=== PATIENT | male | born 1990 | race Caucasian/White ===

== ENCOUNTER 2017-10-19 17:01 | Emergency (ER) | payer SELFPAY ==
[~2017-10-19] VITALS: Ht 170.2 cm; Wt 78.4 kg
[2017-10-19 17:13] VITALS: TEMP 36.9; Ht 170.2 cm; Wt 78.4 kg
[2017-10-19] MEDS ORDERED: DEXAMETHASONE SOD INJ 4 MG/ML VIAL IV STA (17:59)
[2017-10-19] MEDS ORDERED: ONDANSETRON INJ 2 MG/ML 2 ML VIAL IV STA (17:59)
[2017-10-19] MEDS ORDERED: HYDROmorphone INJ 1 MG/ML SYR IV STA (17:59)
[2017-10-19] MEDS ORDERED: SODIUM CHLORIDE 0.9% 1000ML 1,000 ML IV ONE (18:00)
--- NOTE | 2017-10-19 20:14 | DIAGNOSTIC IMAGING REPORT ---
MRI LUMBAR SPINE W/O CONTRAST CLINICAL HISTORY: Persistent severe low back pain with left leg radiculopathy. TECHNIQUE: Sagittal and axial T1, T2 and STIR images were obtained. COMPARISON STUDY: No previous studies for comparison. OBSERVATIONS: There is a 1 cm rounded lesion within the superior aspect of the L4 vertebral body demonstrating diminished T1 signal and increased T2 signal. This is of doubtful acute clinical significance given the patient's young age. L1-2: No disc protrusions or extrusions. No evidence of spinal canal or neural foraminal compromise. L2-3: No disc protrusions or extrusions. No evidence of spinal canal or neural foraminal compromise. L3-4: There is a small broad-based central disc protrusion. There is minimal deformity anterior thecal sac. There is no significant foraminal narrowing L4-5: There is a moderate central and left-sided disc protrusion. There is mild deformity anterior thecal sac. The disc material abuts the left L5 nerve root. L5-S1: There is a moderate central disc protrusion. There is no significant thecal sac deformity. There is no foraminal stenosis. The conus medullaris and cauda equina appear normal. IMPRESSION: 1. Small broad-based central disc protrusion at the L3-4 level 2. Moderate Central left-sided disc protrusion at the L4-5 level. The disc material abuts the left L5 nerve root 3. Moderate central disc protrusion at the L5-S1 level. Electronically signed by: Sanju Scherer M.D. 10/19/2017 8:13 PM Dictated Date/Time: 10/19/2017 8:10 PM
[2017-10-19] MEDS ORDERED: IBUP-1050 PO (20:28)
[2017-10-19] MEDS ORDERED: PERCOCET HOME PACK PO ONE (20:45)
[2017-10-19] MEDS ORDERED: PRED20TA2 PO (20:48)
[2017-10-19] MEDS ORDERED: OXYC-57 PO (20:48)
[2017-10-19 20:58] VITALS: BP 130/78; PULSE 78; O2SAT 98
--- NOTE | 2017-10-20 06:49 | EMERGENCY ROOM VISIT NOTE ---
ED Visit Note First contact with patient: 17:19 Chief Complaint: Lower back pain and left leg pain. History of Present Illness: Mr. Rajput is a 27-year-old white male who ambulates into the ED accompanied by his girlfriend complaining of lumbar back pain. Historically patient reports he has never had any significant back diseases or any trauma. Patient reports approximately 1.5 months ago he started experiencing left-sided lumbar back pain. He reports since that time his pain has been constant and gradually worsening. He reports he has been seen by a chiropractor multiple times since the onset of his pain and has not experiencing any improvement from his symptoms. Patient does not recall any specific event that started his back pain; although he does report at work he does a moderate amount of heavy lifting. Currently he places his discomfort in the L5-S1 area just left lateral to the spine. He describes his pain as a sharp sensation. He reports for most of the time he has been experiencing pain the discomfort has radiated into his left buttocks but over the last week his pain is now radiating down the entire leg to the level of the ankle, most prominently when he is weightbearing but sometimes while at rest. He rates his discomfort 8/10. His pain worsens with all movement at the waist, weightbearing, positional changes at the waist and palpation. He has not identified any alleviating factors related to the pain. He reports he has been taken ibuprofen and acetaminophen without relief. Associated with his pain he feels like there is a mild weakness in the leg prominent when he is weightbearing or ambulating, he has had difficulty starting his urine stream and he has noted a tingling sensation throughout the leg once again prominently when he is weightbearing. He denies any recent direct trauma, fevers, chills, sweats, skin eruptions, skin color changes, flank pain, abdominal pain, nausea, vomiting, diarrhea, constipation, rectal bleeding, black/tarry stools, urinary burning, increased urinary frequency, bowel and bladder incontinence, genital paresthesias. Review of Systems: As noted above in history of present illness. 8 body systems were reviewed and found to be negative as noted above. Past Medical History: Unspecified left eye surgery and unspecified wrist surgery. Current Medications: Patient denies. Allergies to Medications: Patient denies. Social History: Patient is currently employed; he feels safe in his home environment; he denies tobacco use; patient denies alcohol use. Physical Examination: Vital Signs: Date Time Temp Pulse Resp B/P (MAP) Pulse Ox O2 Delivery O2 Flow Rate FiO2 10/19/17 20:58 78 18 130/78 98 10/19/17 17:13 36.9 77 18 127/83 98 Room Air GENERAL: 27-year-old male in moderate distress due to pain, nontoxic-appearing, afebrile and hemodynamically stable. NEUROLOGICAL: Awake, alert and oriented to person, place and time. Answering questions appropriately and following commands. Patient's gait was stabilized by his girlfriend. Good hand eye coordination. SKIN: Warm, dry and pink. No soft tissue eruptions or trauma noted. HEENT: Atraumatic and normocephalic. BACK: No tenderness over the bony cervical and thoracic spine. Moderate tenderness to the left side of L4 through S1 without bony deformity, bony crepitus, swelling or ecchymosis. Positive straight leg raise test. Unable to perform range of motion at the waist due to patient's pain; he has to hold onto a wall to allow himself to stand because of his discomfort. No CVA tenderness. THORAX: Lungs sounds are clear to auscultation and equal bilaterally with symmetrical chest wall. ABDOMEN: Flat, soft and nontender. Positive bowel sounds in all quadrants. No guarding, rigidity or organomegaly. LOWER EXTREMITIES: No's gross bony deformities. No shortening or malrotation. No tenderness over the hips, thighs, knees, lower legs, ankles or feet. 2+ patellar and Achilles deep tendon reflexes; visual obscuration showed a slight decrease in his jerk reflex on the left when compared to the right on multiple attempts of the patellar reflex. 4/5 muscle strength in all movements at the waist, knee, ankle and toes; but once again the strength was slightly off when compared to the right. Throughout the legs the skin was warm and pink and capillary refill was brisk. He was intact to light sensations to all dermatomes of the legs and feet. ED Course: Patient is assessed as noted above. Patient's medication list was reviewed. Lumbar Spine MRI: Was reviewed by myself and read by the radiologist and shows: L3-4: There is a small broad-based central disc protrusion. There is minimal deformity anterior thecal sac. There is no significant foraminal narrowing L4-5: There is a moderate central and left-sided disc protrusion. There is mild deformity anterior thecal sac. The disc material abuts the left L5 nerve root. L5-S1: There is a moderate central disc protrusion. There is no significant thecal sac deformity. There is no foraminal stenosis. The conus medullaris and cauda equina appear normal. An IV lock was initiated and patient was hydrated with normal saline and received 1 mg of Dilaudid IV, 4 mg of Zofran IV and 10 mg of Decadron IV for his symptoms. Patient was reassessed multiple times during his stay in the emergency department. Patient's case was reviewed with Dr. Steward; we agreed on diagnostic approach, treatment, disposition and plan. Patient's case was reviewed with Dr. Travon Buchanan, orthopedic back specialist; he recommended continuing narcotic pain control and steroids. He encouraged the patient to contact his office for follow-up within the next 48 hours. Patient was educated about today's findings and instructed on his treatment plan ; he verbalized understanding and agreement with this plan. Clinical Impression: Acute lumbar back pain with disc protrusion and left-sided radicular symptoms. Decision-Making: Initially my differential diagnosis I considered herniated disc , nerve impingement, muscle spasms, and other causes. Disposition: Patient discharged home in stable condition accompanied by his girlfriend; prior to departure he was reassessed and subjectively reported he was feeling better and rated his discomfort 4/10. Plan: Patient was placed on a sliding pain medication scale of ibuprofen, acetaminophen and Percocet; his name was checked on state database and no red flags were noted and he was given appropriate narcotic precautions. Patient was placed on prednisone 60 mg once a day for the next 5 days. Patient was signed off work for 3 days. Patient was encouraged to follow-up with Dr. Buchanan for definitive care and treatment. Patient was encouraged return to the ED for worsening/uncontrolled pain, fevers , abdominal pain, worsening lower leg weakness/numbness/tingling, genital paresthesias, worsening bowel and bladder dysfunction or any new/concerning symptoms.
== END 2017-10-19 20:59 | disposition home or self-care (01) ==
LOC: C.EDB 17:02 → C.EDD 20:59
DX: M51.17 Intervertebral disc disorders with radiculopathy, lumbosacral region (principal)

== ENCOUNTER 2024-05-12 19:50 | Inpatient (IN) ==
[2024-05-12 20:32] LABS: Basophils # (auto) 0.03 K/uL (0.00-0.20); Basophils % (auto) 0.2 %; Hematocrit (blood only) 42.3 % (42.0-52.0); Hemoglobin 14.3 g/dl (14.0-18.0); Immature Granulocytes # (auto) 0.07 K/uL (0.01-0.20); Immature Granulocytes % (auto) 0.4 %; Lymphocytes # (auto) 0.86 K/uL (1.20-3.40); Mean Corpuscular Hemoglobin 27.9 pg (25.0-34.0); Mean Corpuscular Hgb Conc 33.8 g/dL (32.0-36.0); Mean Corpuscular Volume 82.6 fL (80.0-100.0); Mean Platelet Volume 10.2 fL (9.4-12.4); Monocytes # (auto) 1.08 K/uL (0.11-0.59); Monocytes % (auto) 6.3 %; Neutrophils # (auto) 15.06 K/uL (1.40-6.50); Neutrophils % (auto) 88.1 %; Platelet Count 157 K/uL (130-400); RDW Coefficient of Variation 12.5 % (11.5-14.5); Red Blood Count 5.12 M/uL (4.70-6.10)
[2024-05-12 20:46] LABS: Albumin Globulin Ratio 1.6 (0.9-2); Albumin Level 4.6 gm/dl (3.4-5.0); BUN Creatinine Ratio 16.5 (10-20); Bilirubin,Total 0.9 mg/dl (0.2-1.0); Calcium 9.6 mg/dl (8.6-10.3); Creatinine Clr Calc Pharmacy 96.8 ml/min; Globulin 2.8 gm/dl (2.5-4.0); Potassium 4.1 mmol/L (3.5-5.1); Total Protein 7.4 gm/dl (6.0-8.3)
--- NOTE | 2024-05-12 21:43 | Emergency Department Note ---
Impression & Plan Abscess of skin and subcutaneous tissue ED Provider Note CHIEF COMPLAINT: Possible infection HISTORY OF PRESENTING ILLNESS: This 34-year-old male patient presents to the emergency department with his girlfriend for evaluation of a possible postsurgical infection. The patient states that he had a lipoma removed from the right lower abdomen just above his hip on 04/29/[address] Drake. He feels that the area is getting more swollen and painful. He was given Bactrim today as an outpatient through telehealth, but states that the area where the stitches were then started draining tonight. He states that he has had numbness from the surgical site down to his knee since the surgery. He is also now having pain in his right hip. He is taking Percocet without improvement of the pain. He has had a fever of 101.4 F max that started today. The patient is having trouble walking now because of the pain. Denies chest pain, SOB, abdominal pain, nausea, or vomiting. He feels like he is having some urinary hesitancy today. Denies any problems with his BMs though. He is not a diabetic. He had soup and crackers at 6 pm. He had sips of water in the waiting room prior to being told to be NPO. Upon review of the [facility] surgical note, the patient had a 7 cm subcutaneous soft tissue subfascial mass of the right hip that was removed. REVIEW OF SYSTEMS: See HPI for pertinent positives and pertinent negatives. ALLERGIES: NKDA MEDICATIONS: Medical Marijuana PAST MEDICAL HISTORY: Denies past medical history. History of lumbar spine surgery. History of left wrist surgery. History of left eye surgery. History of lipoma removed from the right hip 04/29/24. PHYSICAL EXAM: VITALS: Vitals are noted on the nurse's note and reviewed by myself. GENERAL: Non toxic, no acute distress, non-diaphoretic. SKIN: The patient has a surgical incision to the right lower quadrant of the abdomen with sutures in place. There is surrounding erythema and edema, but no obvious fluctuance. There is mild induration below the surgical site. There is some serosanguineous discharge, but no obvious purulent discharge. There is mild dehiscence of the wound medially in the area where it is draining. No lymphatic streaking. Capillary refill <2 sec. EYES: PERRLA. EOMI. Conjunctivae without injection, sclerae without icterus. NOSE: Patent without discharge. MOUTH: Mucous membranes moist. Uvula midline. Airway patent. NECK: Supple without nuchal rigidity. HEART: Regular rate and rhythm without murmurs gallops or rubs. LUNGS: Clear to auscultation bilaterally without wheezes, rales or rhonchi. No retractions or accessory muscle use. ABDOMEN: Positive bowel sounds x 4. The patient is significantly tender to palpation in the area of the surgical incision. No other obvious masses or organomegaly. Arriaga sign negative. No CVA tenderness. The patient does have some guarding and rebound tenderness due to the right lower quadrant infection, but no rigidity. NEURO: Patient was alert and oriented. No focal neurological deficits. DIFFERENTIAL DIAGNOSIS: Differential diagnosis includes cellulitis, abscess, intra-abdominal infection, septic arthritis of the right hip, spinal infection, UTI, pyelonephritis, sepsis, or others. ED COURSE AND MEDICAL DECISION MAKING: HISTORY FROM INDEPENDENT HISTORIAN: Additional history obtained from patient's girlfriend. MEDICATIONS GIVEN: 1 L normal saline solution bolus. Toradol 10 mg IV. Morphine 4 mg IV. Zosyn 4.5 g IV. MONITOR: Continuous hall monitor: Order was placed for continuous hall monitor. Patient was placed on the hall monitor and continuous pulse ox. Patient was noted to be in normal sinus rhythm at an initial rate of 95 bpm per my interpretation. INTERPRETATION OF LABS: I interpreted the labs with full lab results as below in the lab section of this note. Pertinent lab results discussed in the MDM section below. INTERPRETATION OF IMAGING: Imaging studies were interpreted by myself and read by radiology as per the imaging section of this note. CT scan of the abdomen pelvis with IV contrast showed a subcutaneous fluid collection along the right pelvic wall which measures 9.8 x 2.5 x 9.7 cm. Correlate for subcutaneous abscess. Moderate surrounding subcutaneous edema concerning for extent of infection. EXTERNAL RECORDS REVIEWED: I reviewed the patient's outpatient surgical note as summarized above. CONSULTATIONS: Dr. Cantu of general surgery. On-call hospitalist. MDM SUMMARY: The patient was seen during a time of extreme volume and extreme acuity. Nursing triage protocols were initiated with IV lock, labs, and/or imaging studies conducted by protocol in the triage area. The patient was examined by myself once they were taken back to an exam room. The patient had a lipoma removed from the right lower quadrant of the abdomen just above his right hip on 04/29/[address] Drake. However, the area is now red, swollen, and significantly more painful. He also started with a fever of 101.4 F today. He sent pictures to surgery via telehealth today and they started him on Bactrim. However, the area started draining tonight. The patient's incision site does appear infected on exam. A culture swab was obtained from the discharge from the wound and is still pending. The patient was given 1 L normal saline solution bolus, IV Toradol, and IV morphine with improvement of his symptoms. Blood culture was drawn by nursing staff, but this was done after antibiotics were given. The patient was given Zosyn 4.5 g IV. The patient's lactate level is normal and his vital signs improved. Due to the severe shortage of IV fluids, the patient was not given additional IV fluids in the ER. White blood cell count is elevated at 17.10. Hemoglobin normal at 14.3. Platelet count normal at 157. Sodium 133 and glucose 122, but CMP without acute abnormalities. Magnesium low at 1.6. Lactate normal at 1.2. Urinalysis without evidence for UTI. CT scan of the abdomen pelvis with IV contrast showed a subcutaneous fluid collection along the right pelvic wall which measures 9.8 x 2.5 x 9.7 cm. Correlate for subcutaneous abscess. Moderate surrounding subcutaneous edema concerning for extent of infection. I spoke with Dr. Cantu of general surgery and sent a picture of the incision site via [employer] for review. Dr. Cantu recommended the patient be admitted for IV antibiotics by medicine and Dr. Drake could evaluate the patient in the morning to determine if drainage could be performed at bedside or if the patient would need to be taken to the OR. I spoke with the on-call hospitalist who agreed to admit the patient for further management. Please refer to their dictation for further details. The patient's care was transferred in stable condition. DIAGNOSIS: Right pelvic subcutaneous abscess Past Med/Surg History Problem List (Updated 05/13/24 @ 07:37 by Ann Abbasi PA-C) Abscess of skin and subcutaneous tissue (Acute) Sepsis Extensor tendon laceration of wrist with open wound (Acute) Extensor tendon laceration of wrist with open wound (Acute) Lumbar disc herniation Social History Smoking Status: Current every day smoker Tobacco Type: Cigarettes Do You Dip or Chew Tobacco: No; Tobacco Cessation Education Requested by Patient: No Hx Alcohol Use: No Hx Substance Use: Yes Last Used Substance: Hours (ago) Preferred Language: Citizen Of [place] Communication Ability: Effective Manager Action Required: No Beliefs That Will Affect Care: None Current Living Situation: Significant Other Other Information That Helps Us Care for You: No Feels Safe at Home: Yes Safety Concerns: Feels Safe At This Time Assistive Devices: None Allergies Allergies Allergy/AdvReac Type Severity Reaction Status Date / Time No Known Drug Allergies Allergy Unknown . Verified 05/12/24 22:55 Home Meds Home Medications Medication Instructions Recorded Confirmed sulfamethoxazole 800 1 tab PO BID 05/12/24 05/12/24 mg-trimethoprim 160 mg tablet Results & Data (ED) Vital Signs Vital Signs - 24 hr 05/12/24 19:53 05/12/24 23:00 05/12/24 23:59 Temperature 36.6 C Temperature Source Temporal Artery Scan Pulse Rate 110 H Pulse Rate [Apical] 93 H 93 H Respiratory Rate 18 20 20 Respiratory Effort / Characteristics Non-Labored Spontaneous Non-Labored Non-Labored Respiratory Depth Normal Blood Pressure 138/76 Blood Pressure [Right Arm] 113/56 L 120/65 Blood Pressure Mean 96 Blood Pressure Mean [Right Arm] 75 83 Pulse Oximetry 97 96 95 Oxygen Delivery Method Room Air Room Air Sepsis Recent Fever Within 48 Hours No Sepsis New/Unexplained Change in Mental Status No Sepsis Action Taken by Nursing No Action Required 05/13/24 01:00 Temperature Temperature Source Pulse Rate Pulse Rate [Apical] 88 Respiratory Rate 16 Respiratory Effort / Characteristics Non-Labored Respiratory Depth Blood Pressure Blood Pressure [Right Arm] 120/65 Blood Pressure Mean Blood Pressure Mean [Right Arm] 83 Pulse Oximetry 93 Oxygen Delivery Method Room Air Sepsis Recent Fever Within 48 Hours Sepsis New/Unexplained Change in Mental Status Sepsis Action Taken by Nursing Laboratory Data 05/13/24 04:25 05/13/24 04:25 Lab Results 05/12/24 05/12/24 05/12/24 Range/Units 20:10 22:10 23:13 WBC 17.10 H (4.8-10.8) K/ul RBC 5.12 (4.70-6.10) M/uL Hgb 14.3 (14.0-18.0) g/dl Hct 42.3 (42.0-52.0) % MCV 82.6 (80.0-100.0) fL MCH 27.9 (25.0-34.0) pg MCHC 33.8 (32.0-36.0) g/dL RDW Std Deviation 38.0 (36.4-46.3) fL RDW Coeff of Higinio 12.5 (11.5-14.5) % Plt Count 157 (130-400) K/uL MPV 10.2 (9.4-12.4) fL Immature Gran % (Auto) 0.4 % Neut % (Auto) 88.1 % Lymph % (Auto) 5.0 % [place] % (Auto) 6.3 % Eos % (Auto) 0.0 % Baso % (Auto) 0.2 % Neut # (Auto) 15.06 H (1.40-6.50) K/uL Lymph # (Auto) 0.86 L (1.20-3.40) K/uL [place] # (Auto) 1.08 H (0.11-0.59) K/uL Eos # (Auto) 0.00 (0.00-0.50) K/uL Baso # (Auto) 0.03 (0.00-0.20) K/uL Immature Gran # (Auto) 0.07 (0.01-0.20) K/uL Sodium 133 L (136-145) mmol/L Potassium 4.1 (3.5-5.1) mmol/L Chloride 98 (98-107) mmol/L Carbon Dioxide 27 (21-32) mmol/L Anion Gap 8 (3-11) BUN 16 (6-23) mg/dl Creatinine 0.97 (0.6-1.4) mg/dl Est Cr Clr Drug Dosing 96.8 ml/min eGFR 105.06 BUN/Creatinine Ratio 16.5 (10-20) Glucose 122 H (70-99(Fasting)) mg/dl Estimat Average Glucose 105 mg/dl Hemoglobin A1c 5.3 (4.5-5.6) % Lactate 1.2 (0.4-2.0) mmol/L Calcium 9.6 (8.6-10.3) mg/dl Magnesium 1.6 L (1.7-2.4) mg/dl Total Bilirubin 0.9 (0.2-1.0) mg/dl AST 18 (13-39) U/L ALT 20 (7-52) U/L Alkaline Phosphatase 64 (34-104) U/L Total Protein 7.4 (6.0-8.3) gm/dl Albumin 4.6 (3.4-5.0) gm/dl Globulin 2.8 (2.5-4.0) gm/dl Albumin/Globulin Ratio 1.6 (0.9-2) Urine Color Yellow Urine Appearance Clear (Clear) Urine pH 6.5 (4.5-7.5) Ur Specific [place] > 1.045 H (1.000-1.030) Urine Protein Negative (Negative) Urine Glucose (UA) Negative (Negative) Urine Ketones Negative (Negative) Urine Blood Negative (Negative) Urine Nitrite Negative (Negative) Urine Bilirubin Negative (Negative) Urine Urobilinogen Negative (Negative) Ur Leukocyte Esterase Negative (Negative) Administered Medications Acetaminophen (Acetaminophen 325 Mg Tab) 650 mg PO QID PRN PRN Reason: pain/fever Stop: 06/12/24 02:07 Last Admin: 05/13/24 06:05 Dose: 650 mg Documented By: GILDARDO Piperacillin Sod/Tazobactam Sod (Zosyn) 4.5 gm in 100 mls @ 25 mls/hr IV Q8H HELENA; Protocol Stop: 05/20/24 03:59 Last Admin: 05/13/24 04:08 Dose: 25 mls/hr Documented By: YOLANDA Sodium Chloride (Nss) 1,000 mls @ 75 mls/hr IV [id number] STA Stop: 05/13/24 15:31 Last Admin: 05/13/24 02:46 Dose: 75 mls/hr Documented By: YOLANDA Discontinued Medications Piperacillin Sod/Tazobactam Sod (Zosyn) 4.5 gm in 100 mls @ 200 mls/hr IV NOW ONE; Protocol Stop: 05/12/24 22:33 Last Infusion: 05/12/24 22:45 Dose: Infused Documented By: Admin: 05/12/24 22:16 Dose: 200 mls/hr Documented By: CEF Sodium Chloride (Nss) 1,000 mls @ 999 mls/hr IV .Q1H1M ONE Stop: 05/12/24 23:04 Last Infusion: 05/12/24 23:47 Dose: Infused Documented By: Admin: 05/12/24 22:13 Dose: 999 mls/hr Documented By: CEF Doxycycline Hyclate 100 mg/ (Dextrose) 100 mls @ 50 mls/hr IV NOW STA Stop: 05/13/24 03:34 Last Infusion: 05/13/24 03:56 Dose: Infused Documented By: Admin: 05/13/24 01:50 Dose: 50 mls/hr Documented By: YOLANDA Magnesium Sulfate/Dextrose (Magnesium Sulfate / D5w) 1 gm in 100 mls @ 50 mls/hr IV ONE STA Stop: 05/13/24 05:52 Last Infusion: 05/13/24 06:20 Dose: Infused Documented By: Admin: 05/13/24 03:57 Dose: 50 mls/hr Documented By: YOLANDA Ioversol (Optiray 320 100ml) 90 ml IV ONCE ONE Stop: 05/12/24 22:26 Last Admin: 05/12/24 22:26 Dose: 90 ml Documented By: AMMON Ketorolac Tromethamine (Ketorolac Tromethamine 15 Mg/Ml Vial) 10 mg IV NOW ONE Stop: 05/12/24 22:05 Last Admin: 05/12/24 22:10 Dose: 10 mg Documented By: CEF Morphine Sulfate (Morphine Sulfate 4 Mg/Ml 1 Ml Carp\Vial) 4 mg IV NOW STA Stop: 05/12/24 23:38 Last Admin: 05/12/24 23:52 Dose: 4 mg Documented By: YOLANDA Imaging Data Radiologist's Impression: Abdomen/Pelvis CT 05/12/24 22:04 Exam(s): CT ABDOMEN + PELVIS With Contrast IV Amt: 90 ml opti 320 EXAM: CT Abdomen and Pelvis With Intravenous Contrast CLINICAL HISTORY: Reason for exam: RLQ incision - eval extent of infection / abscess. TECHNIQUE: Axial computed tomography images of the abdomen and pelvis with intravenous contrast. CTDI is 13.65 mGy and DLP is 638.69 mGy-cm. Automated exposure control was utilized for the study. A dose lowering technique was utilized adhering to the principles of ALARA. CONTRAST: Patient received 90 ml opti 320 of IV contrast COMPARISON: No relevant prior studies available. FINDINGS: Lung bases: Unremarkable. No mass. No consolidation. ABDOMEN: Liver: Unremarkable. No mass. Gallbladder and bile ducts: Unremarkable. No calcified stones. No ductal dilation. Pancreas: Unremarkable. No mass. No ductal dilation. Spleen: Unremarkable. No splenomegaly. Adrenals: Unremarkable. No mass. Kidneys and ureters: Unremarkable. No solid mass. No hydronephrosis. Stomach and bowel: Unremarkable. No obstruction. No mucosal thickening. PELVIS: Appendix: No findings to suggest acute appendicitis. Bladder: Unremarkable. No mass. Reproductive: Unremarkable as visualized. ABDOMEN and PELVIS: Intraperitoneal space: Unremarkable. No free air. No significant fluid collection. Bones/joints: No acute fracture. No dislocation. Soft tissues: A subcutaneous fluid collection along the RIGHT pelvic wall, measures 9.8 x 2.5 x 9.7 cm. Correlate for subcutaneous abscess. Moderate surrounding subcutaneous edema, concerning for extent of infection. Vasculature: Unremarkable. No abdominal aortic aneurysm. Lymph nodes: Unremarkable. No enlarged lymph nodes. IMPRESSION: A subcutaneous fluid collection along the RIGHT pelvic wall, measures 9. 8 x 2.5 x 9.7 cm. Correlate for subcutaneous abscess. Moderate surrounding subcutaneous edema, concerning for extent of infection. Electronically signed by: Simón Mills MD 05/13/24 00:20 AM Discharge Plan Visit Data Chief Complaint: Leg Injury/Pain Stated Complaint: SURGERY LAST WEEK, INFECTION ED Provider: Osmany Ortiz ED Midlevel Provider: Ann Abbasi Discharge Problem: Abscess of skin and subcutaneous tissue Patient Disposition: Admitted As Inpatient Condition: Good Discharge Instructions Interventions: ED Discharge Assessment Last Done: 05/13/24 04:35 Discharge Problem: Abscess of skin and subcutaneous tissue Qualifiers: Site of cutaneous abscess: other site Qualified Code(s): L02.818 - Cutaneous abscess of other sites
[2024-05-12] MEDS: KETOROLAC TROMETHAMINE 15 MG/ML VIAL IV ONE (22:10)
[2024-05-12] MEDS: SODIUM CHLORIDE 0.9% 1,000 ML IV ONE (22:13)
[2024-05-12] MEDS: PIPERACILLIN/TAZOBACTAM 4.5 GM/100 ML BAG IV ONE (22:16)
[2024-05-12] MEDS: OPTIRAY 320 100ml IV ONE (22:26)
[2024-05-12 23:25] LABS: Appearance Urine Clear (Clear); Bilirubin Urine Negative (Negative); Blood Urine Negative (Negative); Color Urine Yellow; Glucose Urine UA Negative (Negative); Ketones Urine Negative (Negative); Leukocyte Esterase Urine Negative (Negative); Nitrite Urine Negative (Negative); Protein Urine Negative (Negative); Specific Gravity Urine > 1.045 (1.000-1.030); Urobilinogen Urine Negative (Negative); pH Urine 6.5 (4.5-7.5)
[2024-05-12] MEDS: MoRPHine SULFATE 4 MG/ML 1 ML CARP\\VIAL IV STA (23:52)
--- NOTE | 2024-05-13 00:21 | CT Scan Report ---
Exam(s): CT ABDOMEN + PELVIS With Contrast IV Amt: 90 ml opti 320 EXAM: CT Abdomen and Pelvis With Intravenous Contrast CLINICAL HISTORY: Reason for exam: RLQ incision - eval extent of infection / abscess. TECHNIQUE: Axial computed tomography images of the abdomen and pelvis with intravenous contrast. CTDI is 13.65 mGy and DLP is 638.69 mGy-cm. Automated exposure control was utilized for the study. A dose lowering technique was utilized adhering to the principles of ALARA. CONTRAST: Patient received 90 ml opti 320 of IV contrast COMPARISON: No relevant prior studies available. FINDINGS: Lung bases: Unremarkable. No mass. No consolidation. ABDOMEN: Liver: Unremarkable. No mass. Gallbladder and bile ducts: Unremarkable. No calcified stones. No ductal dilation. Pancreas: Unremarkable. No mass. No ductal dilation. Spleen: Unremarkable. No splenomegaly. Adrenals: Unremarkable. No mass. Kidneys and ureters: Unremarkable. No solid mass. No hydronephrosis. Stomach and bowel: Unremarkable. No obstruction. No mucosal thickening. PELVIS: Appendix: No findings to suggest acute appendicitis. Bladder: Unremarkable. No mass. Reproductive: Unremarkable as visualized. ABDOMEN and PELVIS: Intraperitoneal space: Unremarkable. No free air. No significant fluid collection. Bones/joints: No acute fracture. No dislocation. Soft tissues: A subcutaneous fluid collection along the RIGHT pelvic wall, measures 9.8 x 2.5 x 9.7 cm. Correlate for subcutaneous abscess. Moderate surrounding subcutaneous edema, concerning for extent of infection. Vasculature: Unremarkable. No abdominal aortic aneurysm. Lymph nodes: Unremarkable. No enlarged lymph nodes. IMPRESSION: A subcutaneous fluid collection along the RIGHT pelvic wall, measures 9. 8 x 2.5 x 9.7 cm. Correlate for subcutaneous abscess. Moderate surrounding subcutaneous edema, concerning for extent of infection. Electronically signed by: Simón Mills MD 05/13/24 00:20 AM
[2024-05-13] MEDS: DOXYCYCLINE HYCLATE 100 MG in DEXTROSE 5% MINI-B 100 ML IV STA (01:50)
--- NOTE | 2024-05-13 02:05 | History & Physical Report ---
Date of Service May 13, 2024 Assessment & Plan (1) Sepsis: Plan: Right pelvic subcutaneous abscess Recent outpatient soft tissue mass excision Hyperglycemia rule out DM Past substance abuse Admit to medical telemetry CS, Doxycycline, Zosyn General Surgery consult Re: Postop infection (ED provider already in touch with Dr. Cantu.) Keep patient n.p.o. until evaluated by Dr. Drake in AM as per discussion with ED provider. DVT prophylaxis. SCDs re: serosanguineous wound drainage Full code Text document was generated using [employer] voice recognition software. It may contain grammatical or spelling errors. Kindly contact undersigned for clarification of any documentation item in question. History of Present Illness Chief Complaint: Right hip swelling, possible infection Primary Care Provider: Clay Pinzon MD History obtained from patient and records. Medical history significant for past substance abuse. Last confinement 2017 under [facility] service for elective lumbar discectomy. Patient underwent outpatient excision of subcutaneous/subfascial mass from right hip at [facility] 2 weeks ago. A few days after procedure, patient noted progressive painful swelling from incision site with serosanguineous drainage. He initially thought it was expected from procedure. Worsening swelling over the last few days worse on ambulation. No headache, no chest pain, no SOB. Fever, chills at home. Temperature elevation of 101 at home. Outpatient Bactrim course prescribed by surgeon. Patient able to take 2 doses at home. Patient consulted ER for worsening swelling. Zosyn administered at the ER. Medical History as above Surgical History : Hip tumor removal, back surgery, strabismus surgery Family History : Pancreatic cancer, gallbladder cancer Personal/Social history : Smokeless tobacco, occasional alcohol intake, construction work Allergies Allergy/AdvReac Type Severity Reaction Status Date / Time No Known Drug Allergies Allergy Unknown . Verified 05/12/24 22:55 Home Medications Medication Instructions Recorded Confirmed Type sulfamethoxazole 800 1 tab PO BID 05/12/24 05/12/24 History mg-trimethoprim 160 mg tablet Past Med/Surg History Problem List (Updated 05/13/24 @ 05:14 by Elias Koroma MD) Sepsis Extensor tendon laceration of wrist with open wound (Acute) Extensor tendon laceration of wrist with open wound (Acute) Lumbar disc herniation Social History Smoking Status: Current every day smoker Tobacco Type: Cigarettes Do You Dip or Chew Tobacco: No; Tobacco Cessation Education Requested by Patient: No Hx Alcohol Use: No Hx Substance Use: Yes Last Used Substance: Hours (ago) Preferred Language: Bulgarian Communication Ability: Effective Director Rehabilitation Program Required: No Beliefs That Will Affect Care: None Current Living Situation: Significant Other Other Information That Helps Us Care for You: No Feels Safe at Home: Yes Safety Concerns: Feels Safe At This Time Assistive Devices: None Review of Systems Review of Systems: As per HPI, all other systems reviewed and negative Physical Exam Physical Exam: GENERAL: Slightly uncomfortable, looks older than stated age, no respiratory distress SKIN: Normal color, warm HEENT: [place] palpebral conjunctivae, no ptosis, dry buccal mucosa NECK : Supple, no tenderness CHEST : CTA, no tenderness HEART : RRR, no obvious murmurs ABDOMEN: Some distention, tender induration, right hip, sutures in place EXTREMITIES : Right hip tenderness, no other conspicuous deformities noted NEUROLOGIC : Coherent, no facial asymmetry, no other gross focality Results & Data Results & Data Vital Signs (Past 12 Hours) Vital Signs Temp Pulse Pulse Resp BP BP Pulse Ox 05/13/24 01:00 88 16 120/65 93 05/12/24 23:59 93 H 20 120/65 95 05/12/24 23:00 93 H 20 113/56 L 96 05/12/24 19:53 36.6 C 110 H 18 138/76 97 O2 Del Method 05/13/24 01:00 Room Air 05/12/24 23:59 05/12/24 23:00 Room Air 05/12/24 19:53 Room Air Laboratory Results Laboratory Results WBC 17.10 K/ul (4.8-10.8) H 05/12/24 20:10 RBC 5.12 M/uL (4.70-6.10) 05/12/24 20:10 Hgb 14.3 g/dl (14.0-18.0) 05/12/24 20:10 Hct 42.3 % (42.0-52.0) 05/12/24 20:10 MCV 82.6 fL (80.0-100.0) 05/12/24 20:10 MCH 27.9 pg (25.0-34.0) 05/12/24 20:10 MCHC 33.8 g/dL (32.0-36.0) 05/12/24 20:10 RDW Std Deviation 38.0 fL (36.4-46.3) 05/12/24 20:10 RDW Coeff of Higinio 12.5 % (11.5-14.5) 05/12/24 20:10 Plt Count 157 K/uL (130-400) 05/12/24 20:10 MPV 10.2 fL (9.4-12.4) 05/12/24 20:10 Immature Gran % (Auto) 0.4 % 05/12/24 20:10 Neut % (Auto) 88.1 % 05/12/24 20:10 Lymph % (Auto) 5.0 % 05/12/24 20:10 [place] % (Auto) 6.3 % 05/12/24 20:10 Eos % (Auto) 0.0 % 05/12/24 20:10 Baso % (Auto) 0.2 % 05/12/24 20:10 Neut # (Auto) 15.06 K/uL (1.40-6.50) H 05/12/24 20:10 Lymph # (Auto) 0.86 K/uL (1.20-3.40) L 05/12/24 20:10 [place] # (Auto) 1.08 K/uL (0.11-0.59) H 05/12/24 20:10 Eos # (Auto) 0.00 K/uL (0.00-0.50) 05/12/24 20:10 Baso # (Auto) 0.03 K/uL (0.00-0.20) 05/12/24 20:10 Immature Gran # (Auto) 0.07 K/uL (0.01-0.20) 05/12/24 20:10 Sodium 133 mmol/L (136-145) L 05/12/24 20:10 Potassium 4.1 mmol/L (3.5-5.1) 05/12/24 20:10 Chloride 98 mmol/L (98-107) 05/12/24 20:10 Carbon Dioxide 27 mmol/L (21-32) 05/12/24 20:10 Anion Gap 8 (3-11) 05/12/24 20:10 BUN 16 mg/dl (6-23) 05/12/24 20:10 Creatinine 0.97 mg/dl (0.6-1.4) 05/12/24 20:10 Est Cr Clr Drug Dosing 96.8 ml/min 05/12/24 20:10 eGFR 105.06 05/12/24 20:10 BUN/Creatinine Ratio 16.5 (10-20) 05/12/24 20:10 Glucose 122 mg/dl (70-99(Fasting)) H 05/12/24 20:10 Lactate 1.2 mmol/L (0.4-2.0) 05/12/24 22:10 Calcium 9.6 mg/dl (8.6-10.3) 05/12/24 20:10 Total Bilirubin 0.9 mg/dl (0.2-1.0) 05/12/24 20:10 AST 18 U/L (13-39) 05/12/24 20:10 ALT 20 U/L (7-52) 05/12/24 20:10 Alkaline Phosphatase 64 U/L (34-104) 05/12/24 20:10 Total Protein 7.4 gm/dl (6.0-8.3) 05/12/24 20:10 Albumin 4.6 gm/dl (3.4-5.0) 05/12/24 20:10 Globulin 2.8 gm/dl (2.5-4.0) 05/12/24 20:10 Albumin/Globulin Ratio 1.6 (0.9-2) 05/12/24 20:10 Urine Color Yellow 05/12/24 23:13 Urine Appearance Clear (Clear) 05/12/24 23:13 Urine pH 6.5 (4.5-7.5) 05/12/24 23:13 Ur Specific [place] > 1.045 (1.000-1.030) H 05/12/24 23:13 Urine Protein Negative (Negative) 05/12/24 23:13 Urine Glucose (UA) Negative (Negative) 05/12/24 23:13 Urine Ketones Negative (Negative) 05/12/24 23:13 Urine Blood Negative (Negative) 05/12/24 23:13 Urine Nitrite Negative (Negative) 05/12/24 23:13 Urine Bilirubin Negative (Negative) 05/12/24 23:13 Urine Urobilinogen Negative (Negative) 05/12/24 23:13 Ur Leukocyte Esterase Negative (Negative) 05/12/24 23:13 Impressions Abdomen/Pelvis CT 05/12/24 22:04 Exam(s): CT ABDOMEN + PELVIS With Contrast IV Amt: 90 ml opti 320 EXAM: CT Abdomen and Pelvis With Intravenous Contrast CLINICAL HISTORY: Reason for exam: RLQ incision - eval extent of infection / abscess. TECHNIQUE: Axial computed tomography images of the abdomen and pelvis with intravenous contrast. CTDI is 13.65 mGy and DLP is 638.69 mGy-cm. Automated exposure control was utilized for the study. A dose lowering technique was utilized adhering to the principles of ALARA. CONTRAST: Patient received 90 ml opti 320 of IV contrast COMPARISON: No relevant prior studies available. FINDINGS: Lung bases: Unremarkable. No mass. No consolidation. ABDOMEN: Liver: Unremarkable. No mass. Gallbladder and bile ducts: Unremarkable. No calcified stones. No ductal dilation. Pancreas: Unremarkable. No mass. No ductal dilation. Spleen: Unremarkable. No splenomegaly. Adrenals: Unremarkable. No mass. Kidneys and ureters: Unremarkable. No solid mass. No hydronephrosis. Stomach and bowel: Unremarkable. No obstruction. No mucosal thickening. PELVIS: Appendix: No findings to suggest acute appendicitis. Bladder: Unremarkable. No mass. Reproductive: Unremarkable as visualized. ABDOMEN and PELVIS: Intraperitoneal space: Unremarkable. No free air. No significant fluid collection. Bones/joints: No acute fracture. No dislocation. Soft tissues: A subcutaneous fluid collection along the RIGHT pelvic wall, measures 9.8 x 2.5 x 9.7 cm. Correlate for subcutaneous abscess. Moderate surrounding subcutaneous edema, concerning for extent of infection. Vasculature: Unremarkable. No abdominal aortic aneurysm. Lymph nodes: Unremarkable. No enlarged lymph nodes. IMPRESSION: A subcutaneous fluid collection along the RIGHT pelvic wall, measures 9. 8 x 2.5 x 9.7 cm. Correlate for subcutaneous abscess. Moderate surrounding subcutaneous edema, concerning for extent of infection. Electronically signed by: Simón Mills MD 05/13/24 00:20 AM
[2024-05-13] MEDS ORDERED: LORazepam 0.5 MG TAB PO PRN (02:08)
[2024-05-13 02:39] LABS: Magnesium 1.6 mg/dl (1.7-2.4)
[2024-05-13] MEDS: SODIUM CHLORIDE 0.9% 1,000 ML IV STA (02:46)
[2024-05-13] MEDS: MAGNESIUM SULFATE / D5W 1 GM/100 ML BAG IV STA (03:57)
[2024-05-13] MEDS: PIPERACILLIN/TAZOBACTAM 4.5 GM/100 ML BAG IV SCH (04:08)
[2024-05-13 04:52] LABS: Basophils # (auto) 0.02 K/uL (0.00-0.20); Basophils % (auto) 0.2 %; Eosinophils # (auto) 0.02 K/uL (0.00-0.50); Eosinophils % (auto) 0.2 %; Immature Granulocytes # (auto) 0.04 K/uL (0.01-0.20); Immature Granulocytes % (auto) 0.3 %; Lymphocytes # (auto) 1.06 K/uL (1.20-3.40); Lymphocytes % (auto) 8.7 %; Mean Corpuscular Hemoglobin 28.5 pg (25.0-34.0); Mean Corpuscular Hgb Conc 34.2 g/dL (32.0-36.0); Mean Corpuscular Volume 83.3 fL (80.0-100.0); Mean Platelet Volume 10.4 fL (9.4-12.4); Monocytes # (auto) 0.95 K/uL (0.11-0.59); Monocytes % (auto) 7.8 %; Neutrophils % (auto) 82.8 %; Platelet Count 113 K/uL (130-400); RDW Coefficient of Variation 12.8 % (11.5-14.5); RDW Standard Deviation 38.8 fL (36.4-46.3); Red Blood Count 4.56 M/uL (4.70-6.10); White Blood Count 12.19 K/ul (4.8-10.8)
[2024-05-13 05:10] LABS: BUN Creatinine Ratio 15.5 (10-20); Calcium 8.4 mg/dl (8.6-10.3); Creatinine Clr Calc Pharmacy 91.2 ml/min; Magnesium 1.6 mg/dl (1.7-2.4); Potassium 3.7 mmol/L (3.5-5.1)
[2024-05-13] MEDS: ACETAMINOPHEN 325 MG TAB PO PRN (06:05)
[2024-05-13 07:35] LABS: Estimated Average Glucose 105 mg/dl; Hemoglobin A1C 5.3 % (4.5-5.6)
[2024-05-13] MEDS: KETOROLAC TROMETHAMINE 15 MG/ML VIAL IV PRN (07:55)
--- NOTE | 2024-05-13 10:25 | Surgery Consultation ---
Date of Consultation May 13, 2024 Assessment & Plan (1) Abscess of skin and subcutaneous tissue: (2) Sepsis: 34-year-old male who is currently 2 weeks status post excision of subcutaneous mass of the right hip at the surgery center by Dr. Drake presented to the emergency room with 3-day history of swelling at the incision with associated redness increased pain, fevers, chills. CT scan showing large subcutaneous fluid collection with associated surrounding edema concerning for postoperative abscess. No extension intra-abdominal. Upon inspection the area was actively draining a cloudy purulent serous fluid at the medial aspect of the incision. This area was opened with a Q-tip and a significant amount of cloudy serous drainage initially and then purulent fluid was expressed. Culture was taken. The area was significantly improved after copious amounts of purulence was expressed the wound was irrigated with some saline and the packing was placed into the wound to keep the skin open to allow further drainage. Given the size of the initial abscess and near the right hip joint I would recommend continuation of IV antibiotics through to today and transition to oral antibiotic pending culture results with hopeful discharge tomorrow. Continue current pain management. Dr. Drake has seen and examined patient, agrees with above. History of Present Illness Reason for Consultation: Abscess at surgical site Requesting Physician: MD Franci Attending Physician: Jacob Constantino MD History of Present Illness Qamar is a 34-year-old male who is currently 2 weeks status post excision of a subcutaneous cyst of the right hip area by Dr. Obrien agrees with surgery center. He states that he started having swelling at the incision site on Thursday that significantly increased in size on Thursday and started having fevers and chills. Continue to have increasing pain and swelling and started having discomfort down the right thigh with numbness and pain. Pain was a 10 out of 10 upon presentation. He states that he felt a popping sensation in one of the sutures popped out and then started having significant drainage from the area last evening. He currently states that he is feeling much better due to the drainage. Allergies Allergy/AdvReac Type Severity Reaction Status Date / Time No Known Drug Allergies Allergy Unknown . 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 Beliefs That Will Affect Care: None Current Living Situation: Significant Other Other Information That Helps Us Care for You: No Feels Safe at Home: Yes Safety Concerns: Feels Safe At This Time Assistive Devices: None Review of Systems Review of Systems: All systems reviewed & are unremarkable except as noted in HPI & below Physical Exam Constitutional: WD/WN, vitals as above cooperative and comfortable; no acute distress, not ill appearing, not in distress and not diaphoretic Respiratory: normal respiratory effort; no respiratory distress, no labored breathing and no retractions Gastrointestinal (Abdomen): Inspection/Auscultation: abdomen normal to inspection; abdomen not distended Musculoskeletal: Just anterior to the right hip there is a surgical incision with nylon sutures. There is significant erythema, induration, fluctuance with active cloudy serous drainage from the incision. There is surrounding cellulitis. Skin: no rashes, warm and dry Psychiatric: Orientation: alert and oriented x 3 Results & Data Vital Signs (Past 12 Hours) Vital Signs Temp Pulse Pulse Resp BP BP Pulse Ox 05/13/24 08:35 88 05/13/24 08:35 05/13/24 07:56 36.4 C L 74 18 130/72 95 05/13/24 05:39 05/13/24 05:28 36.5 C 88 20 110/70 94 05/13/24 04:35 37.5 C 96 H 22 105/66 96 05/13/24 04:00 36.9 C 88 22 98/60 L 94 05/13/24 03:00 86 20 112/64 95 05/13/24 02:08 83 18 112/63 96 05/13/24 01:00 88 16 120/65 93 05/12/24 23:59 93 H 20 120/65 95 05/12/24 23:00 93 H 20 113/56 L 96 O2 Del Method 05/13/24 08:35 05/13/24 08:35 Room Air 05/13/24 07:56 Room Air 05/13/24 05:39 Room Air 05/13/24 05:28 Room Air 05/13/24 04:35 Room Air 05/13/24 04:00 Room Air 05/13/24 03:00 Room Air 05/13/24 02:08 Room Air 05/13/24 01:00 Room Air 05/12/24 23:59 05/12/24 23:00 Room Air Laboratory Results 05/13/24 05/12/24 05/12/24 Range/Units 04:25 23:13 22:10 WBC 12.19 H (4.8-10.8) K/ul RBC 4.56 L (4.70-6.10) M/uL Hgb 13.0 L (14.0-18.0) g/dl Hct 38.0 L (42.0-52.0) % MCV 83.3 (80.0-100.0) fL MCH 28.5 (25.0-34.0) pg MCHC 34.2 (32.0-36.0) g/dL RDW Std Deviation 38.8 (36.4-46.3) fL RDW Coeff of Higinio 12.8 (11.5-14.5) % Plt Count 113 L (130-400) K/uL MPV 10.4 (9.4-12.4) fL Immature Gran % (Auto) 0.3 % Neut % (Auto) 82.8 % Lymph % (Auto) 8.7 % [place] % (Auto) 7.8 % Eos % (Auto) 0.2 % Baso % (Auto) 0.2 % Neut # (Auto) 10.10 H (1.40-6.50) K/uL Lymph # (Auto) 1.06 L (1.20-3.40) K/uL [place] # (Auto) 0.95 H (0.11-0.59) K/uL Eos # (Auto) 0.02 (0.00-0.50) K/uL Baso # (Auto) 0.02 (0.00-0.20) K/uL Immature Gran # (Auto) 0.04 (0.01-0.20) K/uL Sodium 135 L (136-145) mmol/L Potassium 3.7 (3.5-5.1) mmol/L Chloride 102 (98-107) mmol/L Carbon Dioxide 27 (21-32) mmol/L Anion Gap 6 (3-11) BUN 16 (6-23) mg/dl Creatinine 1.03 (0.6-1.4) mg/dl Est Cr Clr Drug Dosing 91.2 ml/min eGFR 97.75 BUN/Creatinine Ratio 15.5 (10-20) Glucose 118 H (70-99(Fasting)) mg/dl Estimat Average Glucose mg/dl Hemoglobin A1c (4.5-5.6) % Lactate 1.2 (0.4-2.0) mmol/L Calcium 8.4 L (8.6-10.3) mg/dl Magnesium 1.6 L (1.7-2.4) mg/dl Total Bilirubin (0.2-1.0) mg/dl AST (13-39) U/L ALT (7-52) U/L Alkaline Phosphatase (34-104) U/L Total Protein (6.0-8.3) gm/dl Albumin (3.4-5.0) gm/dl Globulin (2.5-4.0) gm/dl Albumin/Globulin Ratio (0.9-2) Urine Color Yellow Urine Appearance Clear (Clear) Urine pH 6.5 (4.5-7.5) Ur Specific [place] > 1.045 H (1.000-1.030) Urine Protein Negative (Negative) Urine Glucose (UA) Negative (Negative) Urine Ketones Negative (Negative) Urine Blood Negative (Negative) Urine Nitrite Negative (Negative) Urine Bilirubin Negative (Negative) Urine Urobilinogen Negative (Negative) Ur Leukocyte Esterase Negative (Negative) 05/12/24 Range/Units 20:10 WBC 17.10 H (4.8-10.8) K/ul RBC 5.12 (4.70-6.10) M/uL Hgb 14.3 (14.0-18.0) g/dl Hct 42.3 (42.0-52.0) % MCV 82.6 (80.0-100.0) fL MCH 27.9 (25.0-34.0) pg MCHC 33.8 (32.0-36.0) g/dL RDW Std Deviation 38.0 (36.4-46.3) fL RDW Coeff of Higinio 12.5 (11.5-14.5) % Plt Count 157 (130-400) K/uL MPV 10.2 (9.4-12.4) fL Immature Gran % (Auto) 0.4 % Neut % (Auto) 88.1 % Lymph % (Auto) 5.0 % [place] % (Auto) 6.3 % Eos % (Auto) 0.0 % Baso % (Auto) 0.2 % Neut # (Auto) 15.06 H (1.40-6.50) K/uL Lymph # (Auto) 0.86 L (1.20-3.40) K/uL [place] # (Auto) 1.08 H (0.11-0.59) K/uL Eos # (Auto) 0.00 (0.00-0.50) K/uL Baso # (Auto) 0.03 (0.00-0.20) K/uL Immature Gran # (Auto) 0.07 (0.01-0.20) K/uL Sodium 133 L (136-145) mmol/L Potassium 4.1 (3.5-5.1) mmol/L Chloride 98 (98-107) mmol/L Carbon Dioxide 27 (21-32) mmol/L Anion Gap 8 (3-11) BUN 16 (6-23) mg/dl Creatinine 0.97 (0.6-1.4) mg/dl Est Cr Clr Drug Dosing 96.8 ml/min eGFR 105.06 BUN/Creatinine Ratio 16.5 (10-20) Glucose 122 H (70-99(Fasting)) mg/dl Estimat Average Glucose 105 mg/dl Hemoglobin A1c 5.3 (4.5-5.6) % Lactate (0.4-2.0) mmol/L Calcium 9.6 (8.6-10.3) mg/dl Magnesium 1.6 L (1.7-2.4) mg/dl Total Bilirubin 0.9 (0.2-1.0) mg/dl AST 18 (13-39) U/L ALT 20 (7-52) U/L Alkaline Phosphatase 64 (34-104) U/L Total Protein 7.4 (6.0-8.3) gm/dl Albumin 4.6 (3.4-5.0) gm/dl Globulin 2.8 (2.5-4.0) gm/dl Albumin/Globulin Ratio 1.6 (0.9-2) Urine Color Urine Appearance (Clear) Urine pH (4.5-7.5) Ur Specific [place] (1.000-1.030) Urine Protein (Negative) Urine Glucose (UA) (Negative) Urine Ketones (Negative) Urine Blood (Negative) Urine Nitrite (Negative) Urine Bilirubin (Negative) Urine Urobilinogen (Negative) Ur Leukocyte Esterase (Negative) Diagnostic Findings Exam(s): CT ABDOMEN + PELVIS With Contrast IV Amt: 90 ml opti 320 EXAM: CT Abdomen and Pelvis With Intravenous Contrast CLINICAL HISTORY: Reason for exam: RLQ incision - eval extent of infection / abscess. TECHNIQUE: Axial computed tomography images of the abdomen and pelvis with intravenous contrast. CTDI is 13.65 mGy and DLP is 638.69 mGy-cm. Automated exposure control was utilized for the study. A dose lowering technique was utilized adhering to the principles of ALARA. CONTRAST: Patient received 90 ml opti 320 of IV contrast COMPARISON: No relevant prior studies available. FINDINGS: Lung bases: Unremarkable. No mass. No consolidation. ABDOMEN: Liver: Unremarkable. No mass. Gallbladder and bile ducts: Unremarkable. No calcified stones. No ductal dilation. Pancreas: Unremarkable. No mass. No ductal dilation. Spleen: Unremarkable. No splenomegaly. Adrenals: Unremarkable. No mass. Kidneys and ureters: Unremarkable. No solid mass. No hydronephrosis. Stomach and bowel: Unremarkable. No obstruction. No mucosal thickening. PELVIS: Appendix: No findings to suggest acute appendicitis. Bladder: Unremarkable. No mass. Reproductive: Unremarkable as visualized. ABDOMEN and PELVIS: Intraperitoneal space: Unremarkable. No free air. No significant fluid collection. Bones/joints: No acute fracture. No dislocation. Soft tissues: A subcutaneous fluid collection along the RIGHT pelvic wall, measures 9.8 x 2.5 x 9.7 cm. Correlate for subcutaneous abscess. Moderate surrounding subcutaneous edema, concerning for extent of infection. Vasculature: Unremarkable. No abdominal aortic aneurysm. Lymph nodes: Unremarkable. No enlarged lymph nodes. IMPRESSION: A subcutaneous fluid collection along the RIGHT pelvic wall, measures 9. 8 x 2.5 x 9.7 cm. Correlate for subcutaneous abscess. Moderate surrounding subcutaneous edema, concerning for extent of infection. (1) Abscess of skin and subcutaneous tissue Site of cutaneous abscess: other site Qualified Code(s): L02.818 - Cutaneous abscess of other sites
--- OUTSIDE RECORDS SUMMARY | 2024-05-13 13:23 | External Medical Summary | Summary of Care ---
Author Name Unknown Organization [facility] Address [address] [place] [address] Phone [phone] Care Team Providers Care Air Tube Releaser Name Role Phone Clay Pinzon MD Primary Care Provider +1- [phone] Reason for Visit * Reason Onset Date Comments Advice 05/12/2024 Encounter Details Date Type Department Care Team (Late st Contact Info) Description 05/12/2024 Telephone General Surgery, [facility] [id number] Services, Scheduling [address] [place] [address] Advice Allergies No known active allergiesdocumented as of this encounter (statuses as of 05/12/2024) Medications Medication Sig Dispensed Refills Start Date End Date Status oxyCODONE-Acetaminoph en 5-325 MG Oral Tablet (Percocet) Take 1 Tablet by mouth every 6 hours as needed for Pain, Moderate. 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 Overweight (BMI 25.0-29.9) 11/18/2011 Overview: bmi= 27.12 11/18/11 Tick bite 11/18/2011 Overview: right posterior thigh Routine medical exam 11/18/2011 Nevus 11/18/2011 Overview: ICD-10 update of inactive term Toxic effect of venom 11/18/2011 Overview: ICD-10 update of inactive term Chews tobacco 11/18/2011 documented as of this encounter (statuses as of 05/12/2024) Immunizations Name Administration Dates Next Due TDAP (age 10 and older)(Boostrix) 12/24/2013 documented as of this encounter Social History Tobacco Use Types Packs/Day Years Used Date Smoking Tobacco: Never Smokeless Tobacco: Current Comments:1 can per 2 days- b saud at age 17 Alcohol Use Standard Drinks/Week Comments Yes 0 (1 standard drink = 0.6 oz pur e alcohol) few beers per weekend PHQ-2 Answer Date Recorded PHQ-2 Score 1 02/10/2020 Hunger Vital Sign Answer Date Recorded Worried About Running Out of Food in the Last Ye ar Never true 02/10/2020 Ran Out of Food in the Last Year Never true 02/10/2020 Utilities Answer Date Recorded Do you have trouble paying y our heating, water, or electric bill? (Adult - for ages 18 years and over) Not on file 01/12/2024 Is your family able to pay t he heat, water, or electric bill? (Household - for ages 0-17 years) Not on file 01/12/2024 Does your family have access to good internet? (Household - for ages 0-17 years) Not on file 01/12/2024 Social Connections Answer Date Recorded How often do you feel lonely or isolated from those around you? (Adult - for ages 18 years and over) Not on file 01/12/2024 Sex and Gender Information Value Date Recorded Sex Assigned at Not on file Gender Identity Not on file Sexual Orientation Not on file Job Start Date Occupation Industry Not on file Not on file Not on file documented as of this encounter Miscellaneous Notes * Telephone Encounter - Clementine Castro LPN - 05/12/2024 9:15 AM EDT Called in 800 mg once daily dispense 14 tablets, bactrim. To leonor montaguedayne. Called patient and told him that I called script in and he should be feeling better 24-48 hours later. Gave him out after hours number. * Telephone Encounter - Clementine Castro LPN - 05/12/2024 9:07 AM EDT Talked to patients g/f and said that I would text Dr Drake. Told him what was going on and if hewanted me to call in a script, was not able to send picture in. Waiting to hear from Dr Drake. * Telephone Encounter - Riri Cole OSA - 05/12/2024 7:30 AM EDT Yolande (g/f) called stating pt has some swelling around his incision and is red. He is having somepain. No drainage, no fever, not warm to the touch. Asking for a call back. documented in this encounter Plan of Treatment Upcoming Encounters Date Type Department Care Team (Late st Contact Info) Description 05/16/2024 3:30 PM EDT Office Visit General Surgery, [facility] [address] [place] [address] Jaskaran Drake MD [address] [place] [address] Health Maintenance Due Date Last Done Comments HIV Screening 2005 Hepatitis C Screening 2008 Depression Screening 02/09/2021 02/10/2020 DTap/Tdap Vaccines (7 - Td or Tdap) 12/25/2023 12/24/2013, 08/04/1994, 07/26/1991, Additional history exists COVID-19 Vaccine ( season) 2024 Influenza Vaccine (FLU shot) (#1) 2024 Hepatitis B Vaccine Completed 05/14/1992, 11/07/1991, 10/14/1991 HPV (Gardasil) Vaccine Aged Out No lo nger eligible based on patient's age to complete this topic MENINGOCOCCAL (MENACTRA/MENVEO) Aged Out No longer eligible based on patient's age to complete this topic Pneumococcal Vaccine: Pediatrics (0 to 5 Years) and At-Risk Patients (6 to 64 Years) Aged Out No longer eligible based on patient's age to complete this topic documented as of this encounter Medical Devices Not on filedocumented as of this encounter Advance Directives * Full Code (Latest Code Status on File) Date Activated Date Inactivated Comments 04/29/2024 2:19 PM 04/29/2024 7:20 PM This order r eflects the patients wishes and were consensually agreed upon. Question Answer Comments Discussion of Advance Directives occurred with: Patient * Full Code Date Activated Date Inactivated Comments 04/29/2024 12:33 PM 04/29/2024 2:19 PM This order reflects the patients wishes and were consensually agreed upon. Question Answer Comments Discussion of Advance Directives occurred with: Patient Care Teams Air Tube Releaser Relationship Specialty Start Date End Date Clay Pinzon MD [address] [place] [address] PCP - General Family Medicine 02/10/20 documented as of this encounter
--- OUTSIDE RECORDS SUMMARY | 2024-05-13 13:23 | External Medical Summary | Summary of Care ---
Author Name Unknown Organization [facility] Address [address] [facility] [place] [address] Phone [phone] Care Team Providers Care Industrial Manufacturing Technician Name Role Phone Clay Pinzon MD Primary Care Provider +1- [phone] Reason for Visit * Reason Onset Date Comments Advice 05/12/2024 Encounter Details Date Type Department Care Team (Late st Contact Info) Description 05/12/2024 Telephone General Surgery, [facility] [address] [place] [address] Jaskaran Drake MD [address] [place] [address] Advice Allergies No known active allergiesdocumented as [...] Encounter - Clementine Castro LPN - 05/12/2024 1:25 PM EDT Patient called, he picked up the bactrim, laid down and he incision is leaking, the fluid is clear,I said keep it covered and keep taking your antibiotics. documented in this encounter Plan of Treatment Upcoming Encounters Date Type Department Care Team (Late st Contact Info) Description 05/16/2024 3:30 PM EDT Office Visit General Surgery, [facility] [address] [place] [address] Jaskaran Drake MD [address] [place] [address] Health Maintenance Due Date Last Done Comments [...] Advance Directives occurred with: Patient Care Teams Industrial Manufacturing Technician Relationship Specialty Start Date End Date Clay Pinzon MD [address] [place] [address] PCP - General Family Medicine 02/10/20 documented as of this encounter
--- OUTSIDE RECORDS SUMMARY | 2024-05-13 13:24 | External Medical Summary | Summary of Care ---
Author Name Unknown Organization [facility] Address [address] [place] [address] Phone [phone] Care Team Providers Care Lead Former Name Role Phone Clay Pinzon MD Primary Care Provider +1- [phone] Reason for Visit * Reason Onset Date Comments Advice 05/12/2024 Encounter Details Date Type Department Care Team (Late st Contact Info) Description 05/12/2024 Telephone General Surgery, [facility] [address] [facility] [id number] Services, Scheduling [address] [place] [address] Advice Allergies No known active allergiesdocumented as [...] 3:30 PM EDT Office Visit General Surgery, [facility] [address] [place] [address] Jaskaran Drake MD [address] [place] [address] Health Maintenance Due Date Last Done Comments [...] Advance Directives occurred with: Patient Care Teams Lead Former Relationship Specialty Start Date End Date Clay Pinzon MD [address] [facility] [place] [address] PCP - General Family Medicine 02/10/20 documented as of this encounter
--- OUTSIDE RECORDS SUMMARY | 2024-05-13 13:24 | External Medical Summary | Summary of Care ---
Author Name Unknown Organization [facility] Address [address] [facility] [place] [address] Phone [phone] Care Team Providers Care Risk Compliance Analyst Name Role Phone Clay Pinzon MD Primary Care Provider +1- [phone] Reason for Visit * Reason Onset Date Comments Follow Up 05/02/2024 Encounter Details Date Type Department Care Team (Late st Contact Info) Description 05/02/2024 9:00 AM EDT Scheduled Telephone General Surgery, [facility] [address] [facility] [place] [address] [email or web address] [address] [place] [address] Arrived Allergies No known active allergiesdocumented as of this encounter (statuses as of 05/02/2024) Medications Medication Sig Dispensed Refills Start Date End Date Status oxyCODONE-Acetaminoph en 5-325 MG Oral Tablet (Percocet) Take 1 Tablet by mouth every 6 hours as needed for Pain, Moderate. 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 Overweight (BMI 25.0-29.9) 11/18/2011 Overview: bmi= 27.12 11/18/11 Tick bite 11/18/2011 Overview: right posterior thigh Routine medical exam 11/18/2011 Nevus 11/18/2011 Overview: ICD-10 update of inactive term Toxic effect of venom 11/18/2011 Overview: ICD-10 update of inactive term Chews tobacco 11/18/2011 documented as of this encounter (statuses as of 05/02/2024) Immunizations Name Administration Dates Next Due TDAP [...] Telephone Encounter - Clementine Castro LPN - 05/02/2024 8:29 AM EDT PATIENT IS S/p excision of right hip tumor on 04/29/[address] Jaskaran Drake Pain Level- 5 Meds being taken for pain- percocet Are pain meds effective- yes Incision sites- slightly swollen and red suggested icing Does the patient have a drain- no Does the patient have dressings? Are they aware of dressing instructions- yes Appetite- yes than normal , still eating Nausea/vomiting- none Bowel movement- many Activity- walking Complying with activity restrictions- yes Coughing and deep breathing- no,but told of importance Questions or concerns- none Post operative follow up scheduled for 05/16/2024 documented in this encounter Plan of Treatment Upcoming Encounters Date Type Department Care Team (Late st Contact Info) Description 05/16/2024 3:30 PM EDT Office Visit General Surgery, [facility] [address] [place] [address] Jaskaran Drake MD [address] [place] [address] Health Maintenance Due Date Last Done Comments [...] Advance Directives occurred with: Patient Care Teams Risk Compliance Analyst Relationship Specialty Start Date End Date Clay Pinzon MD [address] [facility] [place] [address] PCP - General Family Medicine 02/10/20 documented as of this encounter
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
--- OUTSIDE RECORDS SUMMARY | 2024-05-13 13:24 | External Medical Summary | Summary of Care ---
Author Name Unknown Organization [facility] Address [address] [place] [address] Phone [phone] Care Team Providers Care Data Warehouse Manager Name Role Phone Clay Pinzon MD Primary Care Provider +1- [phone] Reason for Visit * Reason Onset Date Comments Advice 05/12/2024 Encounter Details Date Type Department Care Team (Late st Contact Info) Description 05/12/2024 Telephone General Surgery, [facility] 132 [facility] [id number] Services, Scheduling [address] [place] [address] Advice Allergies No known active allergiesdocumented as [...] encounter Miscellaneous Notes * Telephone Encounter - Riri Cole OSA - 05/12/2024 7:30 AM EDT Yoalnde (g/f) called stating pt has some swelling around his incision and is red. He is having somepain. No drainage, no fever, not warm to the touch. Asking for a call back. documented in this encounter Plan of Treatment Upcoming Encounters Date Type Department Care Team (Late st Contact Info) Description 05/16/2024 3:30 PM EDT Office Visit General Surgery, [facility] [address] [place] [address] Jaskaran Drake MD [address] [place] [address] Health Maintenance Due Date Last Done Comments [...] Advance Directives occurred with: Patient Care Teams Data Warehouse Manager Relationship Specialty Start Date End Date Clay Pinzon MD [address] [place] [address] PCP - General Family Medicine 02/10/20 documented as of this encounter
--- OUTSIDE RECORDS SUMMARY | 2024-05-13 13:24 | External Medical Summary | Summary of Care ---
Author Name Unknown Organization [facility] Address [address] [facility] [place] [address] Phone [phone] Care Team Providers Care Paper Cutter Operator Name Role Phone Clay Pinzon MD Primary Care Provider +1- [phone] Reason for Visit * Reason Onset Date Comments Medication Refill 05/02/2024 Encounter Details Date Type Department Care Team (Late st Contact Info) Description 05/02/2024 Refill General Surgery, [facility] [address] [place] [address] Jaskaran Byers MD [address] [place] [address] Allergies No known active allergiesdocumented as of this encounter (statuses as of 05/04/2024) Medications Medication Sig Dispensed Refills Start Date End Date Status oxyCODONE-Acetami nophen 5-325 MG Oral Tablet (Percocet) Take 1 Tablet by mouth every 6 hours as needed for Pain, Moderate. 10 Tablet 05/04/2024 Active oxyCODONE-Acetami nophen 5-325 MG Oral Tablet (Percocet) Take 1 Tablet by mouth every 6 hours as needed for Pain, Moderate. 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 Overweight (BMI 25.0-29.9) 11/18/2011 Overview: bmi= 27.12 11/18/11 Tick bite 11/18/2011 Overview: right posterior thigh Routine medical exam 11/18/2011 Nevus 11/18/2011 Overview: ICD-10 update of inactive term Toxic effect of venom 11/18/2011 Overview: ICD-10 update of inactive term Chews tobacco 11/18/2011 documented as of this encounter (statuses as of 05/04/2024) Immunizations Name Administration Dates Next Due TDAP [...] encounter Miscellaneous Notes * Telephone Encounter - Jaskaran Byers MD - 05/04/2024 10:16 AM EDT Signed Prescriptions: Disp Refills oxyCODONE-Acetaminophen 5-325 MG Oral Tabl*10 Tab*0 Sig: Take 1 Tablet by mouth every 6 hours as needed for Pain, Moderate.Authorizing Provider: JASKARAN BYERS * Telephone Encounter - Jaskaran Byers MD - 05/04/2024 10:16 AM EDT Percocet refilled. * Telephone Encounter - Suzanne Gramajo [facility] - 05/04/2024 9:49 AM EDTPending Prescriptions: Disp Refills oxyCODONE-Acetaminophen 5-325 MG Oral Tabl*10 Tab*0 Sig: Take 1 Tablet by mouth every 6 hours as needed for Pain, Moderate. * Telephone Encounter - Suzanne Gramajo [facility] - 05/04/2024 9:48 AM EDT Did you pend patient's preferred pharmacy and medication before forwarding?yes Pharmacy: [facility] [address] [address] [facility] is not delegated to review PDMP for medications from this specialty. Please approve if appropriate. Pending Prescriptions: Disp Refills oxyCODONE-Acetaminophen 5-325 MG Oral Tab*10 Tab*0 Sig: Take 1 Tablet by mouth every 6 hours as needed for Pain, Moderate. Last Visit: 04/13/2024 (in office), Visit date not found (telemedicine) Next Visit: 05/16/2024 If no future appointments scheduled, and last appointment is greater than a year ago, please schedule patient for a follow-up appointment Last date the medication was ordered: 04/29/24 Is this request for a controlled substance?Yes, What was the last refill date 04/29 w/ quantity #10 and dosage and Urine Drug Screen Not completed Urine Drug Screen: Results for orders placed or performed in visit on 11/18/12 TOX SCREEN, URINE, W/ CONFIRMATION Result Value Amphetamine NEGATIVE Barbiturates NEGATIVE Benzodiazepines NEGATIVE Cannabinoids NEGATIVE Cocaine Metabolite NEGATIVE Morphine / Codeine NEGATIVE OXYCODONE NEGATIVE METHADONE MEDICAL NEGATIVE TOX COMMENT SEE COMMENT DETECTION LIMIT SEE COMMENT Patient Phone Numbers Labs: Lab Results Component Value Date/Time CREAT 0.8 01/22/2007 06:25 AM POTASSIUM 4.3 04/25/2008 11:04 AM TSH 1.18 04/25/2008 11:04 AM documented in this encounter Plan of Treatment Upcoming Encounters Date Type Department Care Team (Late st Contact Info) Description 05/16/2024 3:30 PM EDT Office Visit General Surgery, [facility] [address] [place] [address] Jaskaran Byers MD 132 [facility] [place] [address] Health Maintenance Due Date Last Done Comments [...] Advance Directives occurred with: Patient Care Teams Paper Cutter Operator Relationship Specialty Start Date End Date Clay Pinzon MD [address] [place] [address] PCP - General Family Medicine 02/10/20 documented as of this encounter
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
--- OUTSIDE RECORDS SUMMARY | 2024-05-13 13:24 | External Medical Summary | Summary of Care ---
Author Name Unknown Organization [facility] Address [address] [place] [address] Phone [phone] Care Team Providers Care Sewing Machine Repairer Helper Name Role Phone Clay Pinzon MD Primary Care Provider +1- [phone] Reason for Visit * Reason Onset Date Comments Advice 05/12/2024 Encounter Details Date Type Department Care Team (Late st Contact Info) Description 05/12/2024 Telephone General Surgery, [facility] 132 [facility] [phone] Services, Scheduling [address] [place] [address] Advice Allergies No known active allergiesdocumented as [...] 3:30 PM EDT Office Visit General Surgery, [facility] [address] [place] [address] Jaskaran Drake MD [address] [place] [address] Health Maintenance Due Date Last Done Comments [...] Advance Directives occurred with: Patient Care Teams Sewing Machine Repairer Helper Relationship Specialty Start Date End Date Clay Pinzon MD [address] [place] [address] PCP - General Family Medicine 02/10/20 documented as of this encounter
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
--- OUTSIDE RECORDS SUMMARY | 2024-05-13 13:24 | External Medical Summary | Summary of Care ---
Author Name Unknown Organization [facility] Address [address] [place] [address] Phone [phone] Care Team Providers Care Women'S Studies Professor Name Role Phone Clay Pinzon MD Primary Care Provider +1- [phone] Reason for Visit * Reason Onset Date Comments Advice 05/12/2024 Encounter Details Date Type Department Care Team (Late st Contact Info) Description 05/12/2024 Telephone General Surgery, [facility] 132 [facility] [id number] Services, Scheduling [address] [place] [address] Advice Allergies No known active allergiesdocumented as [...] 3:30 PM EDT Office Visit General Surgery, [facility] [address] [place] [address] Jaskaran Drake MD [address] [place] [address] Health Maintenance Due Date Last Done Comments [...] Advance Directives occurred with: Patient Care Teams Women'S Studies Professor Relationship Specialty Start Date End Date Clay Pinzon MD [address] [place] [address] PCP - General Family Medicine 02/10/20 documented as of this encounter
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
--- OUTSIDE RECORDS SUMMARY | 2024-05-13 13:25 | External Medical Summary | Summary of Care ---
Author Name Unknown Organization [facility] Address [address] [place] [address] Phone [phone] Care Team Providers Care Director Life Name Role Phone Clay Pinzon MD Primary Care Provider +1- [phone] Reason for Referral * Evaluate & Treat - Unlimited Visits (Within 30 days (routine)) - Authorized Specialty Diagnoses / Procedures Referred By Contac t Referred To Contact General Surgery Diagnoses Lipoma of torso Clay Pinzon MD [address] [place] [address] Referral ID Status Reason Start Date Expiration Date Visits Requested Visits Authorized [id number] Authorized Specialty Services Required 04/05/[id number] Question Answer Referral Priority Within 30 days (routine) Where should this appointment be scheduled? [facility] What condition is the patient being seen for? General Surgery Conditions What condition is the patient being seen for? Skin Lesions (SubQ Nodules) Reason for Visit * Reason Onset Date Comments Test Results 04/01/2024 Unexpected or In determinate Result Encounter Details Date Type Department Care Team (Late st Contact Info) Description 04/01/2024 Telephone [facility] [address] [place] [address] Clay Pinzon MD [address] [place] [address] Test Results (Unexpected or Indeterminate ... 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 Overweight (BMI 25.0-29.9) 11/18/2011 Overview: bmi= 27.12 11/18/11 Tick bite 11/18/2011 Overview: right posterior thigh Routine medical exam 11/18/2011 Nevus 11/18/2011 Overview: ICD-10 update of inactive term Toxic effect of venom 11/18/2011 Overview: ICD-10 update of inactive term Chews tobacco 11/18/2011 documented as of this encounter (statuses as of 04/07/2024) Immunizations Name Administration Dates Next Due TDAP (age 10 and older)(Boostrix) 12/24/2013 documented as of this encounter Social History Tobacco Use Types Packs/Day Years Used Date Smoking Tobacco: Never Smokeless Tobacco: Current Comments:1 can per 2 days- lisa villavicencio at age 17 Alcohol Use Standard Drinks/Week [...] encounter Miscellaneous Notes * Telephone Encounter - Maurisio Welsh OSA - 04/07/2024 10:36 AM EDT Called patient to schedule referral. No answer and the voicemail box was full. Couldn't LMOM * Telephone Encounter - Clay Pinzon MD - 04/05/2024 6:08 PM EDT Referral placed - please set up for general surg for consideration of removal of lipoma. * Telephone Encounter - Rachael Winn LPN - 04/05/2024 2:26 PM EDT I called and spoke with the patient and he is aware of the information and states he would like thereferral placed for general surgery to discuss having it removed as it is in a bothersome area. * Telephone Encounter - Clay Pinzon MD - 04/04/2024 7:53 AM EDT Please call pt to notify that the u/s findings are consistent with the lump over the right hip areabeing a lipoma. This is a benign lesion. He has 2 options. 1) could be referred to general surgery for consideration of removal. This would prove the diagnosis (because what they remove would be sent to the lab) and the lesion would be gone. 2) he could just continue to monitor the lesion. If it changes in size or starts to give more symptoms (like pain), could be referred to surgery at that time or get an MRI to look at it with a different study. * Telephone Encounter - Bertha White OSA - 04/01/2024 10:44 PM EDT Rodolfo- The radiologist discovered an unexpected or indeterminate finding on Qamar Rajput ([id number]) and asks that you review the following report. Study Type:US ABDOMEN LIMITED Date of Study: 03/31/24 IMPRESSION: Palpable abnormality of concern in the right hip corresponds to a soft tissue lipoma. However, a contrast-enhanced MRI can be obtained for further evaluation if the lesion continues to demonstrate growth or patient develops new symptoms (pain). Please respond to this encounter to acknowledge receipt of this message and take responsibility to ensure this report is reviewed. Thank you, DEXTER Sutton Client Service [facility] [place] documented in this encounter Plan of Treatment Scheduled Referrals Name Type Priority Associated Diagnoses Orde r Schedule SURGERY REFERRAL OP Referral Within 30 da ys (routine) Lipoma of torso Ordered: 04/05/2024 Health Maintenance Due Date Last Done Comments [...] as of this encounter Visit Diagnoses Diagnosis Lipoma of torso- Primary documented in this encounter Care Teams Director Life Relationship Specialty Start Date End Date Clay Pinzon MD [address] [address] PCP - General Family Medicine 02/10/20 documented as of this encounter
--- NOTE | 2024-05-13 18:41 | Hospitalist Progress Note ---
Date of Service May 13, 2024 Assessment & Plan (1) Sepsis: Plan: Right pelvic subcutaneous abscess Recent outpatient soft tissue mass excision 05/13 s/p drainage at bedside by Gen Surg wound cultures obtained clinically improving continue Doxycycline + Zosyn IV US RLE to r/o DVT Hyperglycemia rule out DM a1c 5.3 Past substance abuse DVT prophylaxis. SCDs re: serosanguineous wound drainage Full code plan of care discussed with patient and significant other in detail and at length all questions answered they are understanding, agreeable, comfortable with the plan of care Admission and Anticipated Discharge Date Admission Date: May 13, 2024 Subjective ff up for r hip abscess, etc seen resting in bed, comfortable significant other at bedside states pain over wound on the r Hip still significant but improving feels improved compared to yesterday overall still having R thigh pain no chest pain, dyspnea, palpitations, dizziness no nausea/vomiting, chills no other symptoms Review of Systems Review of Systems: all noted and negative except for above Physical Exam Physical Exam: General- oriented x 3, not in distress, speaks in sentences with no effort or accessory muscle use Eyes- anicteric Neck- no JVD Lungs- clear breath sounds bilaterally, no rales/wheezes Heart- normal rate, regular rhythm; no murmurs Abdomen- normal bowel sounds, nondistended, soft, nontender Extremities- no pretibial edema, no calf tenderness R hip wound: sutures in place, no edema, mild erythema surrounding the incision packing in place, no active bleeding or drainage Neuro- alert, oriented x 3; no gross focal neurologic deficits Skin- warm & dry Results & Data Results & Data Vital Signs (Past 12 Hours) Vital Signs Temp Pulse Pulse Resp BP Pulse Ox O2 Del Method 05/13/24 18:29 38.7 C H 05/13/24 15:33 36.7 C 94 H 18 115/66 97 Room Air 05/13/24 14:35 84 05/13/24 08:35 88 05/13/24 08:35 Room Air 05/13/24 07:56 36.4 C L 74 18 130/72 95 Room Air all noted and reviewed including below
[2024-05-13] MEDS: PROMETHAZINE 6.25 MG/50.25 ML BAG IV PRN (19:22)
[2024-05-13] MEDS: DAPTOmycin 375 MG in SYRINGE 0 ML IV SCH (19:22)
[2024-05-13] MEDS: ADVANCED PROBIOTIC 625 MG CAPSULE PO SCH (19:29)
[2024-05-13] MEDS ORDERED: DOXYCYCLINE HYCLATE 100 MG CAP PO SCH (21:00)
[2024-05-13] MEDS: MELATONIN 3 MG TAB PO PRN (21:09)
--- NOTE | 2024-05-14 06:17 | Surgery Progress Note ---
Date of Service May 14, 2024 Assessment & Plan (1) Abscess of skin and subcutaneous tissue: Plan: Patient had incision opened and drained at bedside yesterday. Wound cultures were taken and results are pending at this time. Recommend continue IV antibiotics for now and will plan to transition over to oral antibiotics today. AM labs pending, if WBC improving patient may possibly be discharged later today. Packing to remain in placed to allow further drainage until his follow up that is currently scheduled for Thursday. Admission and Anticipated Discharge Date Admission Date: May 13, 2024 Supervising Physician Co-Signing Physician Notes Will have nursing replace the packing within the wound He can keep this in place until Thursday when he has follow-up with Dr. Drake Surgery will sign off at this time, please call with any questions or concerns He should go home on oral antibiotics Subjective Patient feeling well this morning, states his pain has significantly improved since drainage yesterday at bedside. Packing has remained in place. Around 6PM last evening patient did have reported fever, antibiotics were switched from Doxy to IV Dapto. AM labs and fluid cultures pending at this time, currently still on IV antibiotics Physical Exam Constitutional: WD/WN, vitals as above Respiratory: normal respiratory effort, lungs clear to auscultation Cardiovascular: RRR, no murmur, no edema Skin: Previous surgical site over anterior right hip with some overlying erythema and tenderness to palpation. Packing and dressing in place. Results & Data Vital Signs (Past 12 Hours) Vital Signs Temp Pulse Pulse Resp BP Pulse Ox O2 Del Method 05/14/24 02:38 36.8 C 86 18 140/69 97 Room Air 05/13/24 22:47 37.5 C 81 18 131/70 96 Room Air 05/13/24 21:50 85 05/13/24 19:45 37.4 C 05/13/24 19:20 36.8 C 94 H 18 123/67 95 Room Air 05/13/24 18:29 38.7 C H PG Care Time/CCT Total # of Minutes Spent Total Time Spent with Patient: Total time spent is greater than 50% in coordination of care (as documented) at patient's floor/unit and/or counseling patient: Coding Level of Care Code 31804 Post Operative Follow-Up Diagnoses Abscess of skin and subcutaneous tissue L02.818 Site of cutaneous abscess: other site (1) Abscess of skin and subcutaneous tissue Site of cutaneous abscess: other site Qualified Code(s): L02.818 - Cutaneous abscess of other sites
--- NOTE | 2024-05-14 07:18 | Ultrasound Report ---
US venous doppler LE RT CLINICAL HISTORY: RLE edema, pain, r/o dvt TECHNIQUE: Right lower extremity real-time compression venous ultrasound with Color Doppler imaging. Utilizing real-time ultrasonic imaging multiple real time high-resolution ultrasonic images with comp ression and noncompression maneuvers of the deep venous system in addition to color doppler imaging w ere performed from the common femoral vein through the proximal calf veins. COMPARISON: None available at the time of this dictation. FINDINGS/IMPRESSION: No deep venous thrombus, there is normal compressibility of the deep venous system from the common fe moral vein through the proximal calf veins. No superficial venous thrombosis is identified. ACT 112: Negative or not required by law. Electronically signed by: Choco Taylor M.D. 05/14/2024 7:16 AM
[2024-05-14 09:18] LABS: Basophils # (auto) 0.01 K/uL (0.00-0.20); Basophils % (auto) 0.1 %; Eosinophils # (auto) 0.05 K/uL (0.00-0.50); Eosinophils % (auto) 0.5 %; Hematocrit (blood only) 39.5 % (42.0-52.0); Hemoglobin 13.3 g/dl (14.0-18.0); Immature Granulocytes # (auto) 0.02 K/uL (0.01-0.20); Immature Granulocytes % (auto) 0.2 %; Lymphocytes # (auto) 1.01 K/uL (1.20-3.40); Lymphocytes % (auto) 10.8 %; Mean Corpuscular Hemoglobin 28.4 pg (25.0-34.0); Mean Corpuscular Hgb Conc 33.7 g/dL (32.0-36.0); Mean Corpuscular Volume 84.4 fL (80.0-100.0); Mean Platelet Volume 10.5 fL (9.4-12.4); Monocytes # (auto) 0.71 K/uL (0.11-0.59); Monocytes % (auto) 7.6 %; Neutrophils # (auto) 7.59 K/uL (1.40-6.50); Neutrophils % (auto) 80.8 %; Platelet Count 135 K/uL (130-400); RDW Coefficient of Variation 12.8 % (11.5-14.5); RDW Standard Deviation 39.5 fL (36.4-46.3); Red Blood Count 4.68 M/uL (4.70-6.10); White Blood Count 9.39 K/ul (4.8-10.8)
[2024-05-14 09:26] LABS: BUN Creatinine Ratio 11.3 (10-20); Calcium 9.4 mg/dl (8.6-10.3); Creatinine Clr Calc Pharmacy 96.8 ml/min; Potassium 3.8 mmol/L (3.5-5.1)
[2024-05-14] MEDS: oxyCODONE HCL IR 5 MG TAB (IMMEDIATE RELEASE) PO PRN (12:23)
--- NOTE | 2024-05-14 16:40 | Hospitalist Progress Note ---
Date of Service May 14, 2024 Assessment & Plan (1) Sepsis: Plan: Right pelvic subcutaneous abscess Recent outpatient soft tissue mass excision 05/13 s/p drainage at bedside by Gen Surg wound cultures obtained clinically improving continue Doxycycline + Zosyn IV US RLE to r/o DVT 05/14 blood culture: negative so far wound culture: pending no fever since last night wound still with purulent drainage and surrounding erythema continue IV Daptomycin + IV Zosyn probiotics continue to monitor wound DVT prophylaxis. SCDs re: serosanguineous wound drainage Full code plan of care discussed with patien all questions answered he is understanding, agreeable, comfortable with the plan of care Admission and Anticipated Discharge Date Admission Date: May 13, 2024 Subjective ff up for hip abscess, etc seen resting in bed, comfortable reports pain over wound area is improving, at least 60% R thigh pain also improving, able to ambulate more no other symptoms Review of Systems Review of Systems: all noted and negative except for above Physical Exam Physical Exam: General- oriented x 3, not in distress, speaks in sentences with no effort or accessory muscle use Eyes- anicteric Neck- no JVD Lungs- clear breath sounds bilaterally, no rales/wheezes Heart- normal rate, regular rhythm; no murmurs Abdomen- normal bowel sounds, nondistended, soft, nontender R hip: (+) purulent drainage (+) moderate erythema below incision no tenderness R thigh: no edema Extremities- no pretibial edema, no calf tenderness Neuro- alert, oriented x 3; no gross focal neurologic deficits Skin- warm & dry Results & Data Results & Data Vital Signs (Past 12 Hours) Vital Signs Temp Pulse Pulse Resp BP Pulse Ox O2 Del Method 05/14/24 16:31 36.4 C L 79 20 138/83 97 Room Air 05/14/24 14:15 83 05/14/24 11:23 37.1 C 83 18 110/62 97 Room Air 05/14/24 07:26 84 05/14/24 07:25 36.7 C 81 17 102/64 Room Air 05/14/24 07:12 83 all noted and reviewed including below
[2024-05-14 19:34] VITALS: RESP 18
[2024-05-15] MEDS ORDERED: Nursing to Pharmacy Communication SCH (10:45)
[2024-05-15 11:17] VITALS: O2SAT 98
[2024-05-15 11:18] VITALS: BP 127/88; TEMP 98.1
--- NOTE | 2024-05-15 11:52 | Hospitalist Progress Note ---
Date of Service May 15, 2024 Assessment & Plan (1) Sepsis: Plan: Right pelvic subcutaneous abscess Recent outpatient soft tissue mass excision 05/13 s/p drainage at bedside by Gen Surg wound cultures obtained clinically improving continue Doxycycline + Zosyn IV US RLE to r/o DVT 05/14 blood culture: negative so far wound culture: pending no fever since last night wound still with purulent drainage and surrounding erythema continue IV Daptomycin + IV Zosyn probiotics continue to monitor wound 05/15 Wound culture #1: MSSA, group C strep Wound culture #2: Staph species, Group C strep Blood cultures: Negative x 48 hours Drainage from the wound site improved, erythema also improving Transition from daptomycin plus IV Zosyn to Augmentin 875 mg twice daily x 7 more days Probiotics x 1 month Keep appointment with general surgeon tomorrow Daily wound care, dressing changes; instructions given to patient DVT prophylaxis. SCDs re: serosanguineous wound drainage Full code plan of care discussed with patien all questions answered he is understanding, agreeable, comfortable with the plan of care Admission and Anticipated Discharge Date Admission Date: May 13, 2024 Subjective Follow-up for right hip abscess, etc. Seen resting in bed, comfortable, not in distress In good spirits States he feels improved today overall Pain over the right hip area, right thigh and leg significantly improving No fevers or chills No nausea or vomiting No other new symptoms Review of Systems Review of Systems: all noted and negative except for above Physical Exam Physical Exam: General- oriented x 3, not in distress, speaks in sentences with no effort or accessory muscle use Eyes- anicteric Neck- no JVD Lungs- clear breath sounds bilaterally, no rales/wheezes Heart- normal rate, regular rhythm; no murmurs Abdomen- normal bowel sounds, nondistended, soft, no tenderness Right hip are-sutures in place, wound well opposed, minimal serous sanguinous discharge on the dressing Mild erythema inferior to the wound, no tenderness, no warmth Extremities- no pretibial edema, no calf tenderness Right thigh: No erythema, edema Neuro- alert, oriented x 3; no gross focal neurologic deficits Skin- warm & dry Results & Data Results & Data Vital Signs (Past 12 Hours) Vital Signs Temp Pulse Pulse Resp BP Pulse Ox O2 Del Method 05/15/24 11:17 36.7 C 85 18 127/88 98 Room Air 05/15/24 07:51 36.8 C 84 18 146/61 H 97 Room Air 05/15/24 07:08 63 05/15/24 03:37 36.8 C 72 18 140/82 99 Room Air all noted and reviewed including below
--- NOTE | 2024-05-15 12:05 | Discharge Summary ---
Discharge Summary Date of Service May 15, 2024 Principal Dx & Hospital Course #1 = Principal Diagnosis (1) Sepsis: Right hip subcutaneous abscess Recent outpatient soft tissue mass excision 05/13 s/p drainage at bedside by Gen Surg wound cultures obtained given IV Dapto + Zosyn IV 05/15 Wound culture #1: MSSA, group C strep Wound culture #2: Staph species, Group C strep Blood cultures: Negative x 48 hours Drainage from the wound site improved, erythema also improving afebrile x 24 hours Transition from Daptomycin plus IV Zosyn to Augmentin 875 mg twice daily x 7 more days Probiotics x 1 month Keep appointment with general surgeon tomorrow Daily wound care, dressing changes; instructions given to patient DVT prophylaxis. SCDs re: serosanguineous wound drainage Full code plan of care discussed with patien all questions answered he is understanding, agreeable, comfortable with the plan of care Notes For Next Care Provider Medication Changes From Visit Augmentin 875mg BID x 7 days Admission HPI Per Admitting Provider History obtained from patient and records. Medical history significant for past substance abuse. Last 2017 under Orthoped[facility] Spine service for elective lumbar discectomy. Patient underwent outpatient excision of subcutaneous/subfascial mass from right hip at [facility] 2 weeks ago. A few days after procedure, patient noted progressive painful swelling from incision site with serosanguineous drainage. He initially thought it was expected from procedure. Worsening swelling over the last few days worse on ambulation. No headache, no chest pain, no SOB. Fever, chills at home. Temperature elevation of 101 at home. Outpatient Bactrim course prescribed by surgeon. Patient able to take 2 doses at home. Patient consulted ER for worsening swelling. Zosyn administered at the ER. Medical History as above Surgical History : Hip tumor removal, back surgery, strabismus surgery Family History : Pancreatic cancer, gallbladder cancer Personal/Social history : Smokeless tobacco, occasional alcohol intake, construction work Admission Exam Per Admitting Provider GENERAL: Slightly uncomfortable, looks older than stated age, no respiratory distress SKIN: Normal color, warm HEENT: [place] palpebral conjunctivae, no ptosis, dry buccal mucosa NECK : Supple, no tenderness CHEST : CTA, no tenderness HEART : RRR, no obvious murmurs ABDOMEN: Some distention, tender induration, right hip, sutures in place EXTREMITIES : Right hip tenderness, no other conspicuous deformities noted NEUROLOGIC : Coherent, no facial asymmetry, no other gross focality Discharge Exam General- oriented x 3, not in distress, speaks in sentences with no effort or accessory muscle use Eyes- anicteric Neck- no JVD Lungs- clear breath sounds bilaterally, no rales/wheezes Heart- normal rate, regular rhythm; no murmurs Abdomen- normal bowel sounds, nondistended, soft, no tenderness Right hip are-sutures in place, wound well opposed, minimal serous sanguinous discharge on the dressing Mild erythema inferior to the wound, no tenderness, no warmth Extremities- no pretibial edema, no calf tenderness Right thigh: No erythema, edema Neuro- alert, oriented x 3; no gross focal neurologic deficits Skin- warm & dry Updated Medication List Medication Instructions Recorded Confirmed Type sulfamethoxazole 800 1 tab PO BID 05/12/24 05/12/24 History mg-trimethoprim 160 mg tablet amoxicillin 875 mg tablet 875 mg PO BID 10 days #20 tabs 05/15/24 Rx Hospital Stay Data Consultations 05/13/24 01:33 ED Decision to Admit Stat 05/13/24 05:21 Consult General Surgery Routine Diagnostic Imagining Performed 05/12/24 22:04 CT abd pelvis IV con only Stat 05/13/24 18:35 US venous doppler LE RT Routine Exam(s): CT ABDOMEN + PELVIS With Contrast IV Amt: 90 ml opti 320 EXAM: CT Abdomen and Pelvis With Intravenous Contrast CLINICAL HISTORY: Reason for exam: RLQ incision - eval extent of infection / abscess. TECHNIQUE: Axial computed tomography images of the abdomen and pelvis with intravenous contrast. CTDI is 13.65 mGy and DLP is 638.69 mGy-cm. Automated exposure control was utilized for the study. A dose lowering technique was utilized adhering to the principles of ALARA. CONTRAST: Patient received 90 ml opti 320 of IV contrast COMPARISON: No relevant prior studies available. FINDINGS: Lung bases: Unremarkable. No mass. No consolidation. ABDOMEN: Liver: Unremarkable. No mass. Gallbladder and bile ducts: Unremarkable. No calcified stones. No ductal dilation. Pancreas: Unremarkable. No mass. No ductal dilation. Spleen: Unremarkable. No splenomegaly. Adrenals: Unremarkable. No mass. Kidneys and ureters: Unremarkable. No solid mass. No hydronephrosis. Stomach and bowel: Unremarkable. No obstruction. No mucosal thickening. PELVIS: Appendix: No findings to suggest acute appendicitis. Bladder: Unremarkable. No mass. Reproductive: Unremarkable as visualized. ABDOMEN and PELVIS: Intraperitoneal space: Unremarkable. No free air. No significant fluid collection. Bones/joints: No acute fracture. No dislocation. Soft tissues: A subcutaneous fluid collection along the RIGHT pelvic wall, measures 9.8 x 2.5 x 9.7 cm. Correlate for subcutaneous abscess. Moderate surrounding subcutaneous edema, concerning for extent of infection. Vasculature: Unremarkable. No abdominal aortic aneurysm. Lymph nodes: Unremarkable. No enlarged lymph nodes. IMPRESSION: A subcutaneous fluid collection along the RIGHT pelvic wall, measures 9. 8 x 2.5 x 9.7 cm. Correlate for subcutaneous abscess. Moderate surrounding subcutaneous edema, concerning for extent of infection. Electronically signed by: Simón Mills MD 05/13/24 00:20 AM Dictated: 05/13/2419 Transcribed: 05/13/2419 US venous doppler LE RT CLINICAL HISTORY: RLE edema, pain, r/o dvt TECHNIQUE: Right lower extremity real-time compression venous ultrasound with Color Doppler imaging. Utilizing real-time ultrasonic imaging multiple real time high-resolution ultrasonic images with compression and noncompression maneuvers of the deep venous system in addition to color doppler imaging were performed from the common femoral vein through the proximal calf veins. COMPARISON: None available at the time of this dictation. FINDINGS/IMPRESSION: No deep venous thrombus, there is normal compressibility of the deep venous system from the common femoral vein through the proximal calf veins. No superficial venous thrombosis is identified. ACT 112: Negative or not required by law. Electronically signed by: Choco Taylor M.D. 05/14/2024 7:16 AM Pending Results Patient Have Any Pending Studies at Discharge: Yes Discharge Instructions Given to Patient (Per Discharging Provider) PLEASE REFER TO YOUR NEW MEDICATION LIST AND FOLLOW INSTRUCTIONS CAREFULLY. YOUR NEW MEDICATIONS INCLUDE: Augmentin-antibiotic for right hip abscess, with infection Take a probiotic or eat yogurt daily times at least 1 month Drink plenty of water PLEASE CALL YOUR PRIMARY CARE PHYSICIAN OR RETURN TO THE ER IF WITH WORSENING OF SYMPTOMS, INCLUDING Fevers or chills, increasing redness, swelling, pain, bleeding or discharge from the wound site, Diarrhea, nausea, etc. Follow-up with general surgeon tomorrow as scheduled. FOLLOW UP WITH PRIMARY CARE PHYSICIAN In 1 week. The clinic will be calling you for the appointment schedule. Total Time Total Time Spent Total Time Spent (In Minutes): 40 minutes
[2024-05-15 15:25] VITALS: PULSE 87
== END 2024-05-15 15:50 | disposition home or self-care (01) | DRG 863 ==
LOC: ED 19:50 → 2S 05-13 02:06
DX: Y83.8 Other surgical procedures as the cause of abnormal reaction of the patient, or of later complication, without mention of misadventure at the time of the procedure; R73.9 Hyperglycemia, unspecified; B95.61 Methicillin susceptible Staphylococcus aureus infection as the cause of diseases classified elsewhere; T81.41XA Infection following a procedure, superficial incisional surgical site, initial encounter; Z80.0 Family history of malignant neoplasm of digestive organs; Y92.009 Unspecified place in unspecified non-institutional (private) residence as the place of occurrence of the external cause; T81.44XA Sepsis following a procedure, initial encounter; F17.210 Nicotine dependence, cigarettes, uncomplicated